=== PATIENT | male | born 1945 | race Caucasian/White ===

== ENCOUNTER 2021-11-02 08:31 | Outpatient (CLI) | payer MEDICARE, BC | END 2021-11-02 08:32 | disposition home or self-care (01) | LOC: CSHCT 08:31 | PROVIDERS: ATTEND Internal Medicine Hematology & Oncology | DX: R91.1 Solitary pulmonary nodule (principal); C64.2 Malignant neoplasm of left kidney, except renal pelvis; R91.8 Other nonspecific abnormal finding of lung field; Z98.890 Other specified postprocedural states; Z90.5 Acquired absence of kidney | CPT/HCPCS: 71250; 82565 ==

== ENCOUNTER 2022-03-12 09:36 | Outpatient (CLI) | payer MEDICARE, BC | END 2022-03-12 09:37 | disposition home or self-care (01) | LOC: CSHCT 09:36 | PROVIDERS: ATTEND Internal Medicine Hematology & Oncology | DX: R91.8 Other nonspecific abnormal finding of lung field (principal); C64.9 Malignant neoplasm of unspecified kidney, except renal pelvis; Z98.890 Other specified postprocedural states | CPT/HCPCS: 71250 ==

== ENCOUNTER 2022-06-25 08:26 | Outpatient (CLI) | payer MEDICARE, BC | END 2022-06-25 08:27 | disposition home or self-care (01) | LOC: CSHCT 08:26 | PROVIDERS: ATTEND Internal Medicine Hematology & Oncology | DX: C64.9 Malignant neoplasm of unspecified kidney, except renal pelvis (principal); R91.8 Other nonspecific abnormal finding of lung field | CPT/HCPCS: 71250 ==

== ENCOUNTER 2023-04-11 08:47 | Outpatient (CLI) | payer MEDICARE, BC | END 2023-04-11 08:48 | disposition home or self-care (01) | LOC: CSHCT 08:47 | PROVIDERS: ATTEND Internal Medicine Hematology & Oncology | DX: C64.9 Malignant neoplasm of unspecified kidney, except renal pelvis (principal); R91.8 Other nonspecific abnormal finding of lung field | CPT/HCPCS: 71250 ==

== ENCOUNTER 2025-03-09 08:54 | Outpatient (CLI) | payer MEDICARE, BC | END 2025-03-09 08:55 | disposition home or self-care (01) | LOC: CSHCT 08:54 | PROVIDERS: ATTEND Internal Medicine Hematology & Oncology | DX: C64.2 Malignant neoplasm of left kidney, except renal pelvis (principal); C78.00 Secondary malignant neoplasm of unspecified lung; Z98.890 Other specified postprocedural states; R91.8 Other nonspecific abnormal finding of lung field; Z90.5 Acquired absence of kidney | CPT/HCPCS: 71250 ==